=== PATIENT | female | born 2000 | race Caucasian/White ===

== ENCOUNTER 2020-02-20 21:07 | Emergency (ER) | payer OTHER ==
[2020-02-20] MEDS ORDERED: NORMAL SALINE 1000 ML 1,000 ML IV ONE (22:38)
[2020-02-20] MEDS ORDERED: ONDANSETRON HCL INJ/PF 4 MG/2 ML SDV IV ONE (22:38)
--- NOTE | 2020-02-20 22:40 | ER Document Report ---
ED GI/ - General Chief Complaint: Back Pain Stated Complaint: SEVERE BACK PAIN, FEVER, CHILLS, HEADACHE, NAUSEA Time Seen by Provider: 02/20/20 22:27 Notes: Patient is a 19-year-old female that comes to the emergency department for chief complaint of left flank pain, urinary hesitancy, lower abdominal cramps, nausea, chills, and sweats. Symptoms all started earlier this morning. Patient denies cough, congestion, shortness of breath, chest pain, vomiting, vaginal discharge or bleeding. She denies history of kidney stones, she has not had any surgeries, only daily medication is oral contraceptive. Patient states she took ibuprofen before coming to the emergency department and her chills and pain in her back have essentially resolved but she is still nauseated. Past Medical History - General Information source: Patient - Social History Smoking Status: Never Smoker Frequency of alcohol use: None Drug Abuse: None Lives with: Family Family History: Reviewed & Not Pertinent - Medical History Medical History: Negative Surgical Hx: Negative - Immunizations Immunizations up to date: Yes Hx Diphtheria, Pertussis, Tetanus Vaccination: Yes Review of Systems - Review of Systems Constitutional: See HPI EENT: No symptoms reported Cardiovascular: No symptoms reported Respiratory: No symptoms reported Gastrointestinal: See HPI Genitourinary: See HPI Female Genitourinary: No symptoms reported Musculoskeletal: No symptoms reported Skin: No symptoms reported Hematologic/Lymphatic: No symptoms reported Neurological/Psychological: No symptoms reported Physical Exam - Vital signs Vitals: Temp Pulse Resp BP Pulse Ox 98.7 F 83 16 131/78 H 98 02/20/20 21:52 02/20/20 21:52 02/20/20 21:52 02/20/20 21:52 02/20/20 21:52 - Notes Notes: GENERAL: Alert, interacts well. Talkative and well-appearing HEAD: Normocephalic, atraumatic. EYES: Pupils equal, round, and reactive to light. Extraocular movements intact. ENT: Oral mucosa moist, tongue midline. Oropharynx unremarkable. Airway patent. Nares patent, sinuses non-tender, ear canals unremarkable, TM's intact. NECK: Full range of motion. Supple. Trachea midline. No lymphadenopathy. LUNGS: Clear to auscultation bilaterally, no wheezes, rales, or rhonchi. No respiratory distress. Non-tender chest wall. HEART: Regular rate and rhythm. No murmur ABDOMEN: Soft, non-tender. Non-distended. Bowel sounds present in all 4 quadrants. GENITOURINARY: Deferred EXTREMITIES: Moves all 4 extremities spontaneously. No edema, normal radial and dorsalis pedis pulses bilaterally. No cyanosis. BACK: No CVA tenderness noted. No cervical, thoracic, lumbar midline tenderness. No saddle anesthesia, normal distal neurovascular exam. Moves all extremities in full range of motion. NEUROLOGICAL: Alert and oriented x3. Normal speech. Cranial nerves II through XII grossly intact. Strength 5/5 in all extremities. PSYCH: Normal affect, normal mood. SKIN: Warm, dry, normal turgor. No rashes or lesions noted. Course - Re-evaluation Re-evalutation: Vital signs are unremarkable. Patient is alert, talkative, well-appearing. Soft benign abdomen. No CVA tenderness noted. CBC shows mild leukocytosis with elevation of neutrophils but no bandemia. Jolly ana unremarkable. test is negative. Urine does suggest urinary tract infection. Based on patient's flank pain, developing symptoms, I do suspect developing pyelonephritis. Culture placed. Low suspicion that this is viral. I also have a low suspicion of infected ureterolithiasis based on patient's well appearance and gradually progressive symptoms. Discussed expectations, follow-up, return precautions. Patient states understanding and agreement. Stable and well-appearing at time of discharge. - Vital Signs Vital signs: Temp Pulse Resp BP Pulse Ox 98.4 F 71 16 110/67 96 02/21/20 01:33 02/21/20 01:33 02/20/20 21:52 02/21/20 01:33 02/21/20 01:33 - Laboratory Result Diagrams: 02/20/20 23:04 02/20/20 23:04 Laboratory results interpreted by me: 02/20/20 02/20/20 02/20/20 23:04 23:04 23:11 WBC 10.9 H Absolute Neuts (auto) 8.4 H Sodium 134.9 L Glucose 122 H Urine Protein 30 H Urine Blood MODERATE H Urine Nitrite POSITIVE H Urine Urobilinogen 4.0 H Discharge - Discharge Clinical Impression: Left flank pain, Nausea Urinary tract infection Qualifiers: Urinary tract infection type: site unspecified Hematuria presence: without hematuria Qualified Code(s): N39.0 - Urinary tract infection, site not specified Condition: Stable Disposition: HOME, SELF-CARE Additional Instructions: Your evaluation is most consistent with a kidney infection (pyelonephritis). Take the antibiotics as prescribed to completion, take the nausea medication if needed, you can take 1000 mg of Tylenol and 600 mg of ibuprofen every 6 hours for chills/pain. Drink plenty of fluids and rest. Symptoms should simply resolve. Return to the follow-up with primary care. Return if you worsen including severe worsening pain, spiking fevers, vomiting, or any other concerning or worsening symptoms. Prescriptions: Cephalexin Monohydrate [Keflex 500 mg Capsule] 500 mg PO QID 10 Days #40 capsule Ondansetron [Zofran Odt 4 mg Tablet] 1 - 2 tab PO Q4H PRN #15 tab.rapdis PRN Reason: For Nausea/Vomiting
[2020-02-20 23:18] LABS: ABSOLUTE LYMPHOCYTES (AUTO) 1.6 10^3/uL (0.5-4.7); ABSOLUTE MONOCYTES (AUTO) 0.8 10^3/uL (0.1-1.4); ABSOLUTE NEUT (AUTO) 8.4 10^3/uL (1.7-8.2); BASOPHILS % (AUTO) 0.3 % (0-2); EOSINOPHILS % (AUTO) 0.3 % (0-6); HEMATOCRIT 40.2 % (36.0-47.0); HEMOGLOBIN 14.2 g/dL (12.0-15.5); LYMPHOCYTES % (AUTO) 14.9 % (13-45); MEAN CORPUSCULAR HEMOGLOBIN 32.1 pg (27.0-33.4); MEAN CORPUSCULAR HGB CONC 35.4 g/dL (32.0-36.0); MEAN CORPUSCULAR VOLUME 91 fl (80-97); MONOCYTES % (AUTO) 7.7 % (3-13); PLATELET COUNT 256 10^3/uL (150-450); RED BLOOD COUNT 4.43 10^6/uL (3.72-5.28); RED CELL DISTRIBUTION WIDTH 12.8 % (11.5-14.0); SEGMENTED NEUTROPHILS % (AUTO) 76.8 % (42-78); TOTAL CELLS COUNTED % (AUTO) 100 %; WHITE BLOOD COUNT 10.9 10^3/uL (4.0-10.5)
[2020-02-20 23:31] LABS: ALBUMIN 4.2 g/dL (3.5-5.0); ALKALINE PHOSPHATASE 44 U/L (38-126); ANION GAP 7 (5-19); ASPARTATE AMINO TRANSFERASE 23 U/L (14-36); BILIRUBIN,TOTAL 0.8 mg/dL (0.2-1.3); BLOOD UREA NITROGEN 12 mg/dL (7-20); CALCIUM 9.5 mg/dL (8.4-10.2); CARBON DIOXIDE 23 mmol/L (22-30); CHLORIDE 105 mmol/L (98-107); GLUCOSE 122 mg/dL (75-110); TOTAL PROTEIN 7.5 g/dL (6.3-8.2)
[2020-02-20 23:38] LABS: APPEARANCE,URINE CLEAR; BILIRUBIN,URINE NEGATIVE (NEGATIVE); GLUCOSE, URINE NEGATIVE (NEGATIVE); KETONES,URINE NEGATIVE (NEGATIVE); LEUKOCYTE ESTERASE,URINE NEGATIVE (NEGATIVE); NITRITE,URINE POSITIVE (NEGATIVE); PROTEIN,URINE 30 mg/dL (NEGATIVE); URINE SPECIFIC GRAVITY 1.024
[2020-02-20 23:41] LABS: COLOR,URINE ORANGE
[2020-02-20] MEDS ORDERED: CEFTRIAXONE 1 GM/D5W RTU 1 GM/50 ML RTUPB IV ONE (23:54)
[2020-02-20] MEDS ORDERED: ONDANSETRON ODT 4 MG TAB (6 TAB/ER DISP) PO PRN (23:54)
[2020-02-21] MEDS ORDERED: CEFTRIAXONE INJ 1000 MG VIAL ONE (01:13)
[2020-02-21 01:37] VITALS: BP 110/67
== END 2020-02-21 01:37 | disposition home or self-care (01) ==
LOC: ER 21:07
DX: N39.0 Urinary tract infection, site not specified (principal); R10.9 Unspecified abdominal pain; R11.0 Nausea; M54.9 Dorsalgia, unspecified; R50.9 Fever, unspecified; R51 Headache; R39.11 Hesitancy of micturition; R10.30 Lower abdominal pain, unspecified
CPT/HCPCS: 99283; 96361; 96374; 36415; 87086; 83690; 85025; 81025; 80053; 81001; J0696; J2405; J7030